=== PATIENT | female | born 1945 | race Caucasian/White ===

== ENCOUNTER → 2016-11-26 | Outpatient (CLI) | payer MEDICARE ==
[~2016-11-26] MED LIST: PROTONIX40 MG PO
== END ==
LOC: KOH-I 11:34
DX: M13.851 Other specified arthritis, right hip (principal); I10 Essential (primary) hypertension; Z88.5 Allergy status to narcotic agent; Z88.8 Allergy status to other drugs, medicaments and biological substances
CPT/HCPCS: 72170; 73502

== ENCOUNTER → 2016-12-23 | Outpatient (CLI) | payer MEDICARE | LOC: KOH-I 11:02 | DX: J20.8 Acute bronchitis due to other specified organisms (principal); J45.21 Mild intermittent asthma with (acute) exacerbation | CPT/HCPCS: 71020 ==

== ENCOUNTER 2020-07-24 17:59 | Emergency (ER) | payer MEDICARE ==
[~2020-07-24 17:59] MED LIST changes: +ADULT LOW DOSE81 MG PO; +AZITHROMYCIN250 MG PO; +CLONIDINE HCL0.1 M1 PO; +FELODIPINE ER2.5 MG PO; +HYDROCHLOROTH12.5 MG PO; +LABETALOL HCL200 MG PO; +LODINE CAP 300300 MG PO; +NORCO 5-325 TA1 EACH PO; +PERCOCET 5-3251 EACH PO; +PERCOCET 5/325 T1 EA PO; +PRAVACHOL20 MG PO; +SINGULAIR10 MG PO; +SYNTHROID25 MCG PO; +TORADOL 10 MG T10 MG PO; +VENTOLIN HFA 66.7 GM INH; +VESICARE10 MG PO; +ZETIA10 MG PO; +ZYRTEC10 M3 PO
[2020-07-24 18:59] LABS: BUN/CREATININE RATIO 22 (0-10)
[2020-07-24] MEDS ORDERED: NORVASC5 MG PO (21:34)
[2020-07-24] MEDS ORDERED: CATAPRES 0.1MG0.1 MG PO (21:41)
== END 2020-07-24 22:15 | disposition home or self-care (01) ==
LOC: ER1 17:59
PROVIDERS: Physician Assistant
DX: I10 Essential (primary) hypertension (principal); Z90.49 Acquired absence of other specified parts of digestive tract; Z90.710 Acquired absence of both cervix and uterus; Z88.1 Allergy status to other antibiotic agents; Z79.899 Other long term (current) drug therapy
CPT/HCPCS: 80048; 81001; 87086; 93005; 96374; 99284; J0360

== ENCOUNTER → 2020-09-04 | Outpatient (CLI) | payer MEDICARE ==
[~2020-09-04] MED LIST changes: +AMITRIPTYLINE H10 MG PO; +ATORVASTATIN CA20 MG PO; +CATAPRES 0.1MG0.1 MG PO; +CLONIDINE1 EAC1 TD; +KLOR-CON M1010 MEQ PO; +MYRBETRIQ50 MG PO; +NORVASC5 MG PO; +PRAVASTATIN SOD10 MG PO; +REGLAN5 MG PO
== END ==
LOC: KOH-I 14:59
DX: R05 Cough (principal)
CPT/HCPCS: 71046

== ENCOUNTER 2020-10-06 06:45 | Emergency (ER) | payer MEDICARE ==
[~2020-10-06 06:45] MED LIST changes: -AMITRIPTYLINE H10 MG PO; -ATORVASTATIN CA20 MG PO; -CLONIDINE1 EAC1 TD; -KLOR-CON M1010 MEQ PO; -MYRBETRIQ50 MG PO; -PRAVASTATIN SOD10 MG PO; -REGLAN5 MG PO
[2020-10-06 09:24] LABS: HEMOGLOBIN 12.5 gm/dl (12.3-15.3); RED BLOOD COUNT 4.04 M/UL (4.00-5.10)
[2020-10-06 09:54] LABS: BUN/CREATININE RATIO 18 (0-10)
[2020-10-06] MEDS ORDERED: KLOR-CON M1010 MEQ PO (13:38)
[2020-10-06] MEDS ORDERED: REGLAN5 MG PO (13:38)
== END 2020-10-06 14:00 | disposition home or self-care (01) ==
LOC: ER1 06:45
PROVIDERS: Student in an Organized Health Care Education/Training Program
DX: R10.9 Unspecified abdominal pain (principal); M54.9 Dorsalgia, unspecified; E87.6 Hypokalemia; J45.909 Unspecified asthma, uncomplicated; I10 Essential (primary) hypertension; Z79.899 Other long term (current) drug therapy; Z88.8 Allergy status to other drugs, medicaments and biological substances
CPT/HCPCS: 71260; 80053; 81001; 82550; 82553; 83690; 83874; 84484; 85025; 93005; 96365; 96375; 96376; 99284; J2270; J2405; J2765; J3475; J7030; Q9967

== ENCOUNTER 2020-12-31 17:01 | Observation (INO) | payer MEDICARE ==
[~2020-12-31] VITALS: Ht 165.1 cm; Wt 86.2 kg
[~2020-12-31 17:01] MED LIST changes: +KLOR-CON M1010 MEQ PO; +REGLAN5 MG PO
[2020-12-31 18:22] LABS: HEMOGLOBIN 13.9 gm/dl (12.3-15.3); RED BLOOD COUNT 4.37 M/UL (4.00-5.10); WHITE BLOOD COUNT 6.8 K/UL (4.5-11.0)
[2020-12-31 18:40] LABS: BUN/CREATININE RATIO 19 (0-10)
[2020-12-31] MEDS ORDERED: CLONIDINE1 EAC1 TD (22:47)
[2020-12-31] MEDS ORDERED: AMITRIPTYLINE H10 MG PO (22:51)
[2020-12-31] MEDS ORDERED: MYRBETRIQ50 MG PO (22:52)
[2021-01-01] MEDS ORDERED: ATORVASTATIN CA20 MG PO (13:21)
[2021-01-02 05:49] LABS: HEMOGLOBIN 13.4 gm/dl (12.3-15.3); RED BLOOD COUNT 4.25 M/UL (4.00-5.10); WHITE BLOOD COUNT 6.4 K/UL (4.5-11.0)
[2021-01-02 06:11] LABS: BUN/CREATININE RATIO 19 (0-10)
[2021-01-02] MEDS ORDERED: PRAVASTATIN SOD10 MG PO (11:30)
--- NOTE | 2021-01-02 11:45 | NUR ---
PATIENT RETURNED TO FLOOR FROM HEART CATH PROCEDURE WITHOUT INTERVENTION. VITAL SIGNS WNL, PATIENT IS ALERT, VERBAL, AND ORIENTED X4. TR BAND IN PLACE, WILL BEGIN REMOVAL OF AIR AT 1205.
--- NOTE | 2021-01-02 14:04 | NUR ---
INSTRUCTED PATIENT PREVASTATIN SENT TO PHARMACY. KEEP FOLLOW UP APPOINTMENTS. VERBALIZED UNDERSTANDING. YOHANA RODAS R.N.
== END 2021-01-02 16:51 | disposition home or self-care (01) ==
LOC: ER1 17:01 → M/S 21:03 → CDU 21:03 → M/S 22:47
PROVIDERS: Internal Medicine Cardiovascular Disease; Physician Assistant Medical; ADMIT Internal Medicine
DX: R07.89 Other chest pain (principal); I25.10 Atherosclerotic heart disease of native coronary artery without angina pectoris; I16.0 Hypertensive urgency; Z20.822 Contact with and (suspected) exposure to COVID-19; E03.9 Hypothyroidism, unspecified; K21.9 Gastro-esophageal reflux disease without esophagitis; Z86.73 Personal history of transient ischemic attack (TIA), and cerebral infarction without residual deficits; Z79.899 Other long term (current) drug therapy
CPT/HCPCS: ECHO; 36415; 71045; 78452; 80048; 80053; 80061; 82550; 82553; 82652; 83036; 83874; 83880; 84439; 84443; 84484; 84550; 85025; 93005; 93017; 93306; 94664; 94760; 99152; 99285; A9502; C1769; C1887; C1894; G0378; J1644; J1650; J2250; J2785; J3010; Q9967; U0002

== ENCOUNTER → 2021-01-06 | Outpatient (CLI) | payer MEDICARE ==
[~2021-01-06] MED LIST changes: +AMITRIPTYLINE H10 MG PO; +ATORVASTATIN CA20 MG PO; +CLONIDINE1 EAC1 TD; +MYRBETRIQ50 MG PO; +PRAVASTATIN SOD10 MG PO
== END ==
LOC: KOH-I 14:08
DX: M54.16 Radiculopathy, lumbar region (principal)
CPT/HCPCS: 73502

== ENCOUNTER → 2021-01-15 | Outpatient (CLI) | payer MEDICARE | LOC: KOH-I 11:23 | DX: M54.16 Radiculopathy, lumbar region (principal); M85.88 Other specified disorders of bone density and structure, other site; M47.817 Spondylosis without myelopathy or radiculopathy, lumbosacral region; M48.07 Spinal stenosis, lumbosacral region; M48.04 Spinal stenosis, thoracic region | CPT/HCPCS: 72100 ==

== ENCOUNTER → 2021-04-01 | Outpatient (CLI) | payer MEDICARE | LOC: KOH-I 10:21 | DX: M25.562 Pain in left knee (principal) | CPT/HCPCS: 73562 ==

== ENCOUNTER → 2021-04-02 | Outpatient (CLI) | payer MEDICARE | LOC: KOH-I 03-31 16:00 | DX: S09.90XD Unspecified injury of head, subsequent encounter (principal); W19.XXXD Unspecified fall, subsequent encounter; G31.9 Degenerative disease of nervous system, unspecified; R93.0 Abnormal findings on diagnostic imaging of skull and head, not elsewhere classified | CPT/HCPCS: 70450 ==

== ENCOUNTER → 2021-05-06 | Outpatient (CLI) | payer MEDICARE | LOC: KOH-I 11:15 | DX: M25.552 Pain in left hip (principal) | CPT/HCPCS: 73502 ==

== ENCOUNTER → 2021-06-02 | Outpatient (CLI) | payer MEDICARE | LOC: KOH-I 12:02 | DX: M54.6 Pain in thoracic spine (principal); M47.814 Spondylosis without myelopathy or radiculopathy, thoracic region | CPT/HCPCS: 72070 ==

== ENCOUNTER → 2021-08-29 | Outpatient (CLI) | payer MEDICARE | LOC: KOH-I 11:52 | DX: M54.2 Cervicalgia (principal); M43.12 Spondylolisthesis, cervical region; M48.02 Spinal stenosis, cervical region | CPT/HCPCS: 72040 ==

== ENCOUNTER → 2021-09-04 | Outpatient (CLI) | payer MEDICARE | LOC: KOH-I 08:33 | DX: W19.XXXD Unspecified fall, subsequent encounter (principal); G31.9 Degenerative disease of nervous system, unspecified | CPT/HCPCS: 70450 ==

== ENCOUNTER 2021-09-10 14:23 | Inpatient (IN) | payer MEDICARE ==
[~2021-09-10] VITALS: Ht 162.6 cm; Wt 78.1 kg
[~2021-09-10 14:23] MED LIST changes: +LEVOTHYROXINE25 MC1 PO; -SYNTHROID25 MCG PO
[2021-09-10 16:17] LABS: BUN/CREATININE RATIO 17 (0-10)
[2021-09-10 16:20] LABS: HEMOGLOBIN 13.3 gm/dl (12.3-15.3); RED BLOOD COUNT 4.26 M/UL (4.00-5.10); WHITE BLOOD COUNT 9.2 K/UL (4.5-11.0)
[2021-09-11 02:42] LABS: HEMOGLOBIN 11.9 gm/dl (12.3-15.3); RED BLOOD COUNT 3.96 M/UL (4.00-5.10); WHITE BLOOD COUNT 8.3 K/UL (4.5-11.0)
[2021-09-11 04:33] LABS: BUN/CREATININE RATIO 15 (0-10)
[2021-09-11] MEDS ORDERED: PROVENTIL HFA6.7 GM INH (11:35)
[2021-09-11] MEDS ORDERED: MECLIZINE HCL25 MG PO ×2 (11:35→11:49)
[2021-09-11] MEDS ORDERED: PRAVASTATIN SOD20 MG PO (11:39)
[2021-09-11] MEDS ORDERED: ONDANSETRON HCL8 MG PO (11:40)
[2021-09-11] MEDS ORDERED: ADALAT CC30 MG PO (11:40)
[2021-09-11] MEDS ORDERED: LOSARTAN POTAS100 MG PO (11:40)
[2021-09-11] MEDS ORDERED: ZETIA10 MG PO (11:41)
[2021-09-11] MEDS ORDERED: VITAMIN C500 M4 PO (11:41)
[2021-09-11] MEDS ORDERED: ZYRTEC10 MG PO (11:42)
[2021-09-11] MEDS ORDERED: CALCIUM 600 +1 EA12 PO (11:42)
--- NOTE | 2021-09-11 17:19 | NUR ---
PT DID NOT WANT TO WAIT ON FINAL ECHO REPORT BEFORE DISCHARGE. DR WOLF AND MYSELF ADVISED PT TO WAIT. HOWEVER PT STATED THAT SHE HAD IMPORTANT "BUSINESS TO TAKE CARE OF" AND WOULD SCHEDULE HERSELF FOR OUTPT PHYSICAL THERAPY. SPOKE WITH DAUGHTER ON THE PHONE TO INFORM HER ALSO.
== END 2021-09-11 18:20 | disposition home health service (06) | DRG 149 ==
LOC: ER1 14:23 → CDU 17:57 → MED SURG 4 17:57
PROVIDERS: Emergency Medicine; ADMIT Internal Medicine
PROC: B24BZZZ Ultrasonography of Heart with Aorta (ICD-10-PCS; principal; 2021-09-11)
DX: H81.13 Benign paroxysmal vertigo, bilateral (principal); G95.29 Other cord compression; E87.1 Hypo-osmolality and hyponatremia; Z20.822 Contact with and (suspected) exposure to COVID-19; M48.02 Spinal stenosis, cervical region; E78.5 Hyperlipidemia, unspecified; K21.9 Gastro-esophageal reflux disease without esophagitis; I10 Essential (primary) hypertension; G89.29 Other chronic pain; E87.6 Hypokalemia; R29.700 NIHSS score 0; M54.2 Cervicalgia; Z79.82 Long term (current) use of aspirin; Z79.01 Long term (current) use of anticoagulants; Z86.73 Personal history of transient ischemic attack (TIA), and cerebral infarction without residual deficits; Z90.710 Acquired absence of both cervix and uterus; Z90.3 Acquired absence of stomach [part of]; Z98.890 Other specified postprocedural states; Z83.3 Family history of diabetes mellitus; Z82.49 Family history of ischemic heart disease and other diseases of the circulatory system; Z81.1 Family history of alcohol abuse and dependence; Z88.1 Allergy status to other antibiotic agents
CPT/HCPCS: ECHO; 36415; 70450; 70551; 71045; 80048; 80053; 80061; 82550; 82553; 83540; 83550; 83605; 83735; 83880; 84132; 84439; 84443; 84484; 85025; 85027; 93005; 93306; 93880; 96372; 96374; 97162; 97165; 97530; 99285; J1650; J3475; U0002

== ENCOUNTER → 2021-10-01 | Outpatient (CLI) | payer MEDICARE ==
[~2021-10-01] MED LIST changes: +ADALAT CC30 MG PO; +CALCIUM 600 +1 EA12 PO; +LOSARTAN POTAS100 MG PO; +MECLIZINE HCL25 MG PO; +ONDANSETRON HCL8 MG PO; +PRAVASTATIN SOD20 MG PO; +PROVENTIL HFA6.7 GM INH; +VITAMIN C500 M4 PO; +ZYRTEC10 MG PO
== END ==
LOC: HEART 5 12:56
DX: I83.11 Varicose veins of right lower extremity with inflammation (principal); I83.12 Varicose veins of left lower extremity with inflammation; R60.0 Localized edema; R93.89 Abnormal findings on diagnostic imaging of other specified body structures
CPT/HCPCS: 93970

== ENCOUNTER → 2021-10-02 | Outpatient (CLI) | payer MEDICARE | LOC: KOH-I 08:08 | DX: M47.12 Other spondylosis with myelopathy, cervical region (principal); M50.023 Cervical disc disorder at C6-C7 level with myelopathy; M25.78 Osteophyte, vertebrae; M48.02 Spinal stenosis, cervical region; M47.813 Spondylosis without myelopathy or radiculopathy, cervicothoracic region | CPT/HCPCS: 72141 ==

== ENCOUNTER → 2021-10-28 | Outpatient (CLI) | payer MEDICARE | LOC: EMI 10:30 → US 11:00 | DX: M23.8X1 Other internal derangements of right knee (principal); M17.11 Unilateral primary osteoarthritis, right knee; M94.261 Chondromalacia, right knee; S83.231A Complex tear of medial meniscus, current injury, right knee, initial encounter | CPT/HCPCS: 73721; 93971 ==